=== PATIENT | female | born 1935 | race Caucasian/White ===

== ENCOUNTER 2016-10-20 17:12 | Emergency (ER) | payer OTHER ==
[~2016-10-20] VITALS: Ht 152.4 cm; Wt 66.2 kg
[~2016-10-20 17:12] MED LIST: ACETAMINOPHEN-H1 TA2 PO; APAP/OXYCODONE1 TA2 PO; ATIVAN0.5 MG PO; AUGMENTIN 875 M1 TAB PO; BACTRIM DS 8001 TA1 PO; CEFTIN500 MG PO; CIPRODEX 0.3%-7.5 ML OT; CIPROFLOXACIN250 MG PO; CIPROFLOXACIN500 MG PO; DARVOCET N 1001 TAB PO; DAYPRO600 M1 PO; DUONEB 3 MG/3 ML3 M1 NEB; HYZAAR 12.5 MG-1 TAB PO; KEFLEX500 M1 PO; LEXAPRO10 MG PO; LORAZEPAM0.5 MG PO; MAPAP325 MG PO; MOM30 M1 PO; NICODERM14 MG/24 H TD; NORVASC10 MG PO; NORVASC5 MG PO; ONDANSETRON2 MG/ML IV; PREVACID30 MG PO; PYRIDIUM200 MG PO; ROBAXIN750 MG PO; TOPROL XL100 MG PO; TYLENOL160 MG/5 M PO; TYLENOL650 MG R; VICO10300 PO; VICO75300 PO; VICODIN 5/500 505 MG PO; [UNRECOGNIZED DRUG - CODE] SC
[2016-10-20 18:13] LABS: BASO # 0.1 10*3/uL (0.0-0.1); BASO % 0.6 % (0.0-1.0); EOS # 0.3 10*3/uL (0.0-0.4); EOS % 3.4 % (1.0-4.0); HEMOGLOBIN 13.3 g/dl (12.0-16.0); LYMPH % 19.6 % (27.0-41.0); MEAN CELL VOLUME 91.7 fl (81.0-99.0); MEAN CORPUSCULAR HGB CONC 31.7 g/dl (33.0-37.0); MEAN PLATELET VOLUME 9.5 fl (9.6-12.3); MONO # 0.7 10*3/uL (0.1-1.0); MONO % 6.9 % (3.0-9.0); NEUT # 6.9 10*3/uL (2.3-7.9); NEUT % 69.3 % (47.0-73.0); PLATELET COUNT AUTOMATED 248 10*3/uL (130-400); RED BLOOD COUNT 4.58 10*6/uL (4.10-5.10); RED CELL DISTRI WIDTH 14.6 % (0-14.5)
[2016-10-20 18:34] LABS: ALBUMIN 3.2 gm/dl (3.1-4.5); BILIRUBIN, TOTAL 0.1 mg/dl (0.2-1.0); MAGNESIUM 2.2 mg/dL (1.5-2.1); POTASSIUM 4.1 mmol/L (3.5-5.1); TOTAL PROTEIN 8.1 gm/dL (6.4-8.2)
[2016-10-20 19:12] LABS: BILIRUBIN 2+ (NEGATIVE); BLOOD 3+ (NEGATIVE); CLARITY TURBID (CLEAR); COLOR RED (YELLOW); GLUCOSE NEGATIVE (NEGATIVE); KETONE TRACE (NEGATIVE); NITRITE POSITIVE (NEGATIVE); PH 6.5 (5.0-9.0); PROTEIN 3+ (NEGATIVE); SPECIFIC GRAVITY 1.015 (1.005-1.030)
[2016-10-20 19:21] LABS: LEUKO ESTERASE 2+ (NEGATIVE)
[2016-10-20 19:23] LABS: RBC TNTC rbc/hpf (0-2); URINE REFLEX COMMENT YES (NO)
[2016-10-20] MEDS ORDERED: MACROBID100 M1 PO (19:25)
[2016-10-20] MEDS ORDERED: PYRIDIUM200 M1 PO (19:25)
== END 2016-10-20 19:46 | disposition home or self-care (01) ==
LOC: ED 17:12
PROVIDERS: Nurse Practitioner Family
DX: N39.0 Urinary tract infection, site not specified (principal); I12.9 Hypertensive chronic kidney disease with stage 1 through stage 4 chronic kidney disease, or unspecified chronic kidney disease; N18.9 Chronic kidney disease, unspecified; F41.9 Anxiety disorder, unspecified; F32.9 Major depressive disorder, single episode, unspecified; F17.200 Nicotine dependence, unspecified, uncomplicated; Z85.89 Personal history of malignant neoplasm of other organs and systems; Z91.040 Latex allergy status

== ENCOUNTER 2018-01-01 15:20 | Inpatient (IN) | payer OTHER ==
[2018-01-01] VITALS (7 sets, daily range): BP systolic 97–150; BP diastolic 37–79
[~2018-01-01] VITALS: Ht 170.1 cm; Wt 72.6 kg
--- NOTE | ~2018-01-01 | CON ---
[place], [place] REPORT OF CONSULTATION NAME: BALDOM[facility] #: [id number] UNIT #: [id number] ROOM: 401 DOCTOR: POP ROSALES DPM BIRTHDATE: [birth year] DOS: 01/03/2018 SUBJECTIVE: The patient is an 82-year-old female with elongated, thickened nails of both feet. PAST MEDICAL HISTORY: Anxiety, coronary artery disease, carotid artery disease, chronic kidney disease, COPD, depression, history of hemorrhagic cystitis, laryngeal CA, NE, history of recurrent UTIs, hypertension, osteoarthritis, osteopenia, urinary retention. PAST SURGICAL HISTORY: Bilateral hip replacement, laryngectomy, tracheostomy, post-neck dissection left. FAMILY HISTORY: Father age 60+, MVA. Mother at age 60+ from heart disease. ALLERGIES: LATEX. SOCIAL HISTORY: Former heavy cigarette smoker, 20-39 per day. Denies alcohol or illicit drug use. Lower extremity examination edema, lymphedema, bilateral dry, xerotic skin, bilateral. Decreased pedal pulses bilateral, decreased hair growth, nail thickening, pigmentary discoloration, temperature changes, edema. Crumbly thickened yellow nails with incurvated nail borders, extremely dystrophic and elongated 1 through 5 bilateral foot. ASSESSMENT: Onychomycosis, peripheral vascular disease, edema, venous stasis dermatitis, xerosis bilateral. PLAN: Evaluation and management. Debrided nails 1 through 5, bilateral. Ordered Lac-Hydrin lotion applied daily to both lower extremities and feet and we will follow with the patient accordingly on an outpatient basis. Thank you for your kind consultation. POP ROSALES DPM CM:CONSTR:REPORT OF CONSULTATION [id number] 01/04/18 0140 interface
[~2018-01-01 15:20] MED LIST changes: +MACROBID100 M1 PO; +PYRIDIUM200 M1 PO
[2018-01-01 16:14] LABS: BILIRUBIN 1+ (NEGATIVE); BLOOD 3+ (NEGATIVE); CLARITY TURBID (CLEAR); COLOR YELLOW (YELLOW); GLUCOSE NEGATIVE (NEGATIVE); KETONE NEGATIVE (NEGATIVE); PH 7.5 (5.0-9.0); SPECIFIC GRAVITY 1.015 (1.005-1.030)
[2018-01-01 16:14] LABS: BASO # 0.1 10*3/uL (0.0-0.1); BASO % 0.3 % (0.0-1.0); EOS # 0.1 10*3/uL (0.0-0.4); EOS % 0.4 % (1.0-4.0); HEMATOCRIT 26.8 % (37.0-47.0); HEMOGLOBIN 8.6 g/dl (12.0-16.0); LYMPH % 10.1 % (27.0-41.0); MEAN CELL VOLUME 91.8 fl (81.0-99.0); MEAN CORPUSCULAR HGB 29.5 pg (27.0-31.0); MEAN CORPUSCULAR HGB CONC 32.1 g/dl (33.0-37.0); MEAN PLATELET VOLUME 9.7 fl (9.6-12.3); MONO # 1.2 10*3/uL (0.1-1.0); MONO % 6.4 % (3.0-9.0); NEUT # 15.9 10*3/uL (2.3-7.9); NEUT % 82.4 % (47.0-73.0); PLATELET COUNT AUTOMATED 246 10*3/uL (130-400); RED BLOOD COUNT 2.92 10*6/uL (4.10-5.10); RED CELL DISTRI WIDTH 15.1 % (0-14.5); WHITE BLOOD COUNT 19.3 10*3/uL (4.8-10.8)
[2018-01-01 16:15] LABS: LEUKO ESTERASE 3+ (NEGATIVE); NITRITE NEGATIVE (NEGATIVE); UROBILINOGEN < 1.0 E.U./dl (0.2-1.0)
[2018-01-01 16:18] LABS: WBC TNTC wbc/hpf (0-5)
[2018-01-01 16:31] LABS: ALBUMIN 2.6 gm/dl (3.1-4.5); ALKALINE PHOSPHATASE 78 U/L (45-117); BUN 71 mg/dl (7-24); CHLORIDE 101 mmol/L (98-107); CREATININE 2.84 mg/dL (0.55-1.02); LIPASE 79 U/L (73-393); POTASSIUM 4.1 mmol/L (3.5-5.1); SGOT/AST 19 IU/L (3-35); SGPT/ALT 14 U/L (12-78); SODIUM 135 mmol/L (136-145); TOTAL PROTEIN 7.2 gm/dL (6.4-8.2)
[2018-01-01 16:32] LABS: TROPONIN I < 0.015 ng/ml (<0.045)
[2018-01-01] MEDS ORDERED: LOSARTAN POTASS25 M1 PO (17:07)
[2018-01-02] VITALS (9 sets, daily range): BP systolic 93–141; BP diastolic 44–80
[2018-01-02 06:25] LABS: BASO % 0.3 % (0.0-1.0); EOS # 0.1 10*3/uL (0.0-0.4); EOS % 0.4 % (1.0-4.0); HEMATOCRIT 21.8 % (37.0-47.0); HEMOGLOBIN 6.8 g/dl (12.0-16.0); LYMPH # 1.4 10*3/uL (1.3-4.4); LYMPH % 9.9 % (27.0-41.0); MEAN CELL VOLUME 92.4 fl (81.0-99.0); MEAN CORPUSCULAR HGB 28.8 pg (27.0-31.0); MEAN CORPUSCULAR HGB CONC 31.2 g/dl (33.0-37.0); MEAN PLATELET VOLUME 9.8 fl (9.6-12.3); MONO # 0.9 10*3/uL (0.1-1.0); MONO % 6.2 % (3.0-9.0); NEUT # 11.4 10*3/uL (2.3-7.9); NEUT % 82.8 % (47.0-73.0); PLATELET COUNT AUTOMATED 219 10*3/uL (130-400); RED BLOOD COUNT 2.36 10*6/uL (4.10-5.10); RED CELL DISTRI WIDTH 15.1 % (0-14.5); WHITE BLOOD COUNT 13.8 10*3/uL (4.8-10.8)
[2018-01-02 06:38] LABS: ALBUMIN 2.3 gm/dl (3.1-4.5); CREATININE 2.4 mg/dL (0.55-1.02); PHOSPHOROUS 3.9 mg/dL (2.5-4.9); TOTAL PROTEIN 6.2 gm/dL (6.4-8.2)
[2018-01-02 06:44] LABS: THYROID STIM HORMONE (HS) 1.59 uIU/ml (0.358-4.75)
[2018-01-02 09:24] LABS: VITAMIN D, 25-HYDROXY 5.1 ng/mL (30-100)
[2018-01-02 16:15] LABS: BASO # 0.1 10*3/uL (0.0-0.1); BASO % 0.5 % (0.0-1.0); EOS # 0.2 10*3/uL (0.0-0.4); EOS % 1.1 % (1.0-4.0); LYMPH # 1.6 10*3/uL (1.3-4.4); LYMPH % 9.5 % (27.0-41.0); MEAN CELL VOLUME 90.6 fl (81.0-99.0); MEAN CORPUSCULAR HGB 29.7 pg (27.0-31.0); MEAN CORPUSCULAR HGB CONC 32.8 g/dl (33.0-37.0); MEAN PLATELET VOLUME 9.6 fl (9.6-12.3); MONO # 1.1 10*3/uL (0.1-1.0); MONO % 6.3 % (3.0-9.0); NEUT # 13.7 10*3/uL (2.3-7.9); NEUT % 82.1 % (47.0-73.0); NUCLEATED RED BLOOD CELL 0.1 % (0.0-0.0); PLATELET COUNT AUTOMATED 229 10*3/uL (130-400); WHITE BLOOD COUNT 16.7 10*3/uL (4.8-10.8)
[2018-01-02 16:17] LABS: HEMOGLOBIN 9.5 g/dl (12.0-16.0)
[2018-01-03] VITALS: BP 128/82
[2018-01-03 07:18] LABS: BASO # 0.1 10*3/uL (0.0-0.1); BASO % 0.5 % (0.0-1.0); EOS # 0.5 10*3/uL (0.0-0.4); EOS % 4.2 % (1.0-4.0); HEMATOCRIT 27.5 % (37.0-47.0); HEMOGLOBIN 8.5 g/dl (12.0-16.0); LYMPH # 1.4 10*3/uL (1.3-4.4); LYMPH % 11.4 % (27.0-41.0); MEAN CELL VOLUME 92.9 fl (81.0-99.0); MEAN CORPUSCULAR HGB 28.7 pg (27.0-31.0); MEAN CORPUSCULAR HGB CONC 30.9 g/dl (33.0-37.0); MEAN PLATELET VOLUME 9.8 fl (9.6-12.3); MONO # 0.6 10*3/uL (0.1-1.0); MONO % 4.8 % (3.0-9.0); NEUT # 9.8 10*3/uL (2.3-7.9); NEUT % 78.4 % (47.0-73.0); NUCLEATED RED BLOOD CELL 0.2 % (0.0-0.0); PLATELET COUNT AUTOMATED 247 10*3/uL (130-400); RED BLOOD COUNT 2.96 10*6/uL (4.10-5.10); RED CELL DISTRI WIDTH 15.4 % (0-14.5); WHITE BLOOD COUNT 12.5 10*3/uL (4.8-10.8)
[2018-01-03 07:32] LABS: ALBUMIN 2.3 gm/dl (3.1-4.5); POTASSIUM 3.8 mmol/L (3.5-5.1)
[2018-01-03 07:34] LABS: CREATININE 2.23 mg/dL (0.55-1.02)
[2018-01-03 08:00] VITALS: BP 135/65
[2018-01-03 12:00] VITALS: BP 125/59
[2018-01-03 16:00] VITALS: BP 128/53
[2018-01-03 20:00] VITALS: BP 134/67
[2018-01-04] VITALS: BP 119/63
[2018-01-04 06:35] LABS: BASO % 0.3 % (0.0-1.0); EOS # 0.5 10*3/uL (0.0-0.4); EOS % 5.7 % (1.0-4.0); HEMATOCRIT 28.6 % (37.0-47.0); HEMOGLOBIN 8.8 g/dl (12.0-16.0); LYMPH # 1.5 10*3/uL (1.3-4.4); LYMPH % 15.6 % (27.0-41.0); MEAN CELL VOLUME 92.9 fl (81.0-99.0); MEAN CORPUSCULAR HGB 28.6 pg (27.0-31.0); MEAN CORPUSCULAR HGB CONC 30.8 g/dl (33.0-37.0); MEAN PLATELET VOLUME 9.7 fl (9.6-12.3); MONO # 0.8 10*3/uL (0.1-1.0); MONO % 8.1 % (3.0-9.0); NEUT # 6.5 10*3/uL (2.3-7.9); NEUT % 69.4 % (47.0-73.0); PLATELET COUNT AUTOMATED 265 10*3/uL (130-400); RED BLOOD COUNT 3.08 10*6/uL (4.10-5.10); RED CELL DISTRI WIDTH 15.4 % (0-14.5); WHITE BLOOD COUNT 9.3 10*3/uL (4.8-10.8)
[2018-01-04 06:50] LABS: POTASSIUM 3.7 mmol/L (3.5-5.1)
[2018-01-04 06:55] LABS: ALBUMIN 2.2 gm/dl (3.1-4.5); CREATININE 2.32 mg/dL (0.55-1.02); PHOSPHOROUS 3.3 mg/dL (2.5-4.9)
[2018-01-04 08:00] VITALS: BP 114/53
[2018-01-04] MEDS ORDERED: GERI-HYDROLAC222 ML T (10:17)
[2018-01-04] MEDS ORDERED: REMEDY CALAZIME4 GM T (10:17)
[2018-01-04] MEDS ORDERED: HYDROCODONE-AC1 EAC1 PO (10:17)
[2018-01-04] MEDS ORDERED: B12100 MC1 PO (10:17)
[2018-01-04] MEDS ORDERED: CEFUROXIME AXE500 MG PO (10:17)
[2018-01-04] MEDS ORDERED: Vitamin D PO (10:17)
[2018-01-04 12:00] VITALS: BP 150/48
[2018-01-21] MEDS ORDERED: MEROPENEM1 G1 IV (12:43)
[2018-01-21] MEDS ORDERED: RISPERIDONE0.25 M2 NG (12:43)
[2018-01-21] MEDS ORDERED: ASPIRIN ADULT L81 M2 PO (12:43)
[2018-01-21] MEDS ORDERED: LOPRESSOR25 MG PO (12:43)
[2018-01-21] MEDS ORDERED: Carafate1 GM/10 ML PO (12:43)
[2018-01-21] MEDS ORDERED: PROTONIX40 M1 IV (12:43)
[2018-01-21] MEDS ORDERED: MORPHINE SU2 MG/1 M2 IV (12:43)
[2018-01-21] MEDS ORDERED: ATORVASTATIN CA40 M1 PO (12:43)
[2018-01-21] MEDS ORDERED: FUROSEMIDE10 MG/1 M1 IV (12:43)
[2018-01-21] MEDS ORDERED: Nystatin 100,000 UNI PO (12:43)
[2018-01-21] MEDS ORDERED: Ipratropium Brom3 ML NEB ×2 (12:43)
== END 2018-01-04 14:20 | disposition home or self-care (01) | DRG 871 ==
LOC: ED 15:20 → 4E 18:01 → EDHOLD 18:01 → 4E 19:07
PROVIDERS: Emergency Medicine; Internal Medicine Hospice and Palliative Medicine; Internal Medicine Nephrology; Obstetrics & Gynecology
PROC: 30233N1 Transfusion of Nonautologous Red Blood Cells into Peripheral Vein, Percutaneous Approach (ICD-10-PCS; principal; 2018-01-02)
PROC: 0HBRXZZ Excision of Toe Nail, External Approach (ICD-10-PCS; 2018-01-03)
DX: A41.9 Sepsis, unspecified organism (principal); N17.0 Acute kidney failure with tubular necrosis; E43 Unspecified severe protein-calorie malnutrition; L89.151 Pressure ulcer of sacral region, stage 1; Z99.81 Dependence on supplemental oxygen; E86.0 Dehydration; E87.1 Hypo-osmolality and hyponatremia; D64.9 Anemia, unspecified; J43.9 Emphysema, unspecified; I73.9 Peripheral vascular disease, unspecified; B35.1 Tinea unguium; K92.1 Melena; N39.0 Urinary tract infection, site not specified; I12.9 Hypertensive chronic kidney disease with stage 1 through stage 4 chronic kidney disease, or unspecified chronic kidney disease; N18.3 Chronic kidney disease, stage 3 (moderate); R33.9 Retention of urine, unspecified; I87.2 Venous insufficiency (chronic) (peripheral); E55.9 Vitamin D deficiency, unspecified; E53.8 Deficiency of other specified B group vitamins; I25.10 Atherosclerotic heart disease of native coronary artery without angina pectoris; R73.9 Hyperglycemia, unspecified; E66.3 Overweight; K63.89 Other specified diseases of intestine; M19.90 Unspecified osteoarthritis, unspecified site; B96.20 Unspecified Escherichia coli [E. coli] as the cause of diseases classified elsewhere; Z96.643 Presence of artificial hip joint, bilateral; F17.210 Nicotine dependence, cigarettes, uncomplicated; F41.9 Anxiety disorder, unspecified; F32.9 Major depressive disorder, single episode, unspecified; R65.20 Severe sepsis without septic shock; Z85.818 Personal history of malignant neoplasm of other sites of lip, oral cavity, and pharynx; Z91.040 Latex allergy status; Z79.899 Other long term (current) drug therapy; Z87.440 Personal history of urinary (tract) infections; Z87.01 Personal history of pneumonia (recurrent); Z82.49 Family history of ischemic heart disease and other diseases of the circulatory system; I25.2 Old myocardial infarction; Z68.27 Body mass index [BMI] 27.0-27.9, adult